=== PATIENT | female | born 1950 | race Caucasian/White ===

== ENCOUNTER → 2017-04-10 | Outpatient (CLI) | payer MEDICARE, OTHER ==
[~2017-04-10] MED LIST: ASPI-465 PO; ATOR20TA38 PO; CLON-412; CLOP75TA19 PO; DOXA2TAB61 PO; DULERA INH; DULO30CA45; ESOM40CA; FURO40TA4; GABA400C PO; GEMF600T60 PO; GLUC1CAP37 PO; HYDR-3612; HYDR-845 PO; INSU100C3 SC; INSU100V19 SC; LOSA50TA2 PO; METF1000 PO; METO50TA16 PO; MULT236L; NAPR-260; OMEG1CAP9 PO; PHEN100C; SPIRIVA; VALA500T32 PO; ZIPR40CA2; [UNRECOGNIZED DRUG - CODE] PO
--- NOTE | 2017-04-11 19:02 | RADRPT ---
PROCEDURE: XR Knees. CLINICAL INDICATION: Bilateral knee pain. TECHNIQUE: Total of eight views. Weightbearing frontal, oblique, and lateral views of the both kn ees. Patellar views of both knees. COMPARISON: No prior study is available for comparison. FINDINGS: There is no fracture or dislocation. The soft tissues are normal. There are degenerative changes with osteophytes arising from all 3 joint compartment margins. There is bilateral lateral joint compartment narrowing, subarticular sclerosis, and deformity. There is bilateral valgus deformity. There is no lytic or blastic lesion. There is no radiopaque foreign body. IMPRESSION: 1. 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 RPTAT: QQ .Andrew Mg MD, MD Date Time Electronically viewed and signed by .Andrew Mg MD, on 04/11/2017 19:02 .R/
== END | disposition home or self-care (01) ==
LOC: HKI 15:10
PROVIDERS: ATTEND Orthopaedic Surgery
DX: M25.562 Pain in left knee (principal); M25.561 Pain in right knee

== ENCOUNTER 2018-02-05 06:39 | Emergency (ER) | END 2018-02-05 08:54 | disposition home or self-care (01) ==